=== PATIENT | male | born 1990 | race African-American/Black ===

== ENCOUNTER 2017-01-04 15:01 | Emergency (ER) | payer OTHER ==
[~2017-01-04] VITALS: Ht 175.3 cm; Wt 72.6 kg
[2017-01-04] MEDS ORDERED: HYDR-971 PO (16:29)
[2017-01-04] MEDS ORDERED: AMOX1TAB61 PO (16:29)
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
[2017-01-04] MEDS ORDERED: IBUPROFEN 800 MG TABLET. PO ONE (16:30)
[2017-01-04 16:44] VITALS: BP 136/77
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
== END 2017-01-04 16:45 | disposition home or self-care (01) ==
LOC: ER 15:01
DX: S02.2XXA Fracture of nasal bones, initial encounter for closed fracture (principal); J45.909 Unspecified asthma, uncomplicated; F17.200 Nicotine dependence, unspecified, uncomplicated; Y04.0XXA Assault by unarmed brawl or fight, initial encounter; Y93.89 Activity, other specified; Y92.89 Other specified places as the place of occurrence of the external cause; Y99.8 Other external cause status
CPT/HCPCS: 70150; 99284

== ENCOUNTER 2020-08-14 13:01 | Emergency (ER) | payer OTHER ==
[~2020-08-14] VITALS: Ht 175.3 cm; Wt 84.0 kg
[~2020-08-14 13:01] MED LIST: AMOX1TAB61 PO; HYDR-3164 PO
[2020-08-14 13:24] VITALS: BP 131/89
--- NOTE | 2020-08-14 14:00 | RAD ---
FINGER(S) LEFT DATE: 08/14/2020 1:34 PM INDICATION: Reason: Left hand index finger pain at MCP / Spl. Instructions: / History: COMPARISON: None. FINDINGS: Bones: There is no evidence of acute fracture or dislocation. Joints: The joint spaces are normal. Miscellaneous: None. IMPRESSION: No evidence of acute fracture. Electronically signed by: Roman Chavarria MD (08/14/2020 1:57 PM) [id number]
--- NOTE | 2020-08-14 14:23 | PHYS DOC ---
Past Medical History Past Medical History: Asthma Past Surgical History: No Surgical History Smoking Status: Current Every Day Smoker Alcohol Use: None Drug Use: None General Adult EDM: Chief Complaint: FINGER INJURY HPI: HPI: Patient is a 30 year old male who presents to the ED today complaining of his left index finger getting out of place for the last 1 week. Patient denies any injury. Patient is laughing and covering along during this conversation. Review of Systems: Review of Systems: Constitutional: Denies fever or chills. [] Musculoskeletal: Reports left index finger dislocations Integument: Denies rash. [] Neurologic: Denies headache, focal weakness or sensory changes. [] Psychiatric: Denies depression or anxiety. [] Heart Score: Risk Factors: Risk Factors: DM, Current or recent (<one month) smoker, HTN, HLP, family history of CAD, obesity. Risk Scores: Score 0 - 3: 2.5% MACE over next 6 weeks - Discharge Home Score 4 - 6: 20.3% MACE over next 6 weeks - Admit for Clinical Observation Score 7 - 10: 72.7% MACE over next 6 weeks - Early Invasive Strategies Allergies: Allergies: Allergies Coded Allergies Type Severity Reaction Last Updated Verified No Known Drug Allergies 01/04/17 No Physical Exam: PE: Constitutional: Well developed, well nourished, no acute distress, non-toxic appearance. [] Skin: Warm, dry, no erythema, no rash. [] Back: No tenderness, no CVA tenderness. [] Extremities: Left hand and fingers with no obvious deformity. No pain or tenderness noted. Trigger finger noted while patient was demonstrating he is dislocation and relocation of the finger. Adequate radial sensation to the left index finger. +2 left radial pulse. Cap refill less than 2 seconds to left index finger. Neurologic: Alert and oriented X 3, normal motor function, normal sensory function, no focal deficits noted. [] Psychologic: Affect normal, judgement normal, mood normal. [] Current Patient Data: Vital Signs: Vital Signs Date Time Temp Pulse Resp B/P (MAP) Pulse Ox O2 Delivery O2 Flow Rate FiO2 08/14/20 13:24 97.2 81 16 131/89 (103) 99 Room Air 97.2 EKG: EKG: [] Radiology/Procedures: Radiology/Procedures: []PROCEDURE: FINGER(S) LEFT FINGER(S) LEFT DATE: 08/14/2020 1:34 PM INDICATION: Reason: Left hand index finger pain at MCP / Spl. Instructions: / History: COMPARISON: None. FINDINGS: Bones: There is no evidence of acute fracture or dislocation. Joints: The joint spaces are normal. Miscellaneous: None. IMPRESSION: No evidence of acute fracture. Electronically signed by: Lucas Bhagat MD (08/14/2020 1:57 PM) [id number] DICTATED and SIGNED BY: LUCAS BHAGAT MD DATE: 08/14/20 [id number] 0 Course & Med Decision Making: Course & Med Decision Making Pertinent Labs and Imaging studies reviewed. (See chart for details) This is a 24-year-old male patient presenting to the ED today stating he has had multiple dislocation and relocation of the left index finger for the last 1 week. Finger was examined, there is no deformity noted. This appears to be a trigger finger. Left index finger x-rays were obtained which were negative for any acute findings. Patient was discharged to home. Provided orthopedic doctor for follow-up. Dragon Disclaimer: Dragon Disclaimer: This electronic medical record was generated, in whole or in part, using a voice recognition dictation system. Departure Departure Impression: Primary Impression: Trigger index finger of left hand Disposition: 01 DC HOME SELF CARE/HOMELESS Condition: STABLE Referrals: NO PCP (PCP) SUHAIL LEE MD follow up with the orthopedic doctor provided in 1 week as needed Patient Instructions: Trigger Finger Additional Instructions: You were evaluated in the emergency room, your left index finger x-rays were negative for acute findings. This appears to be a trigger finger. You can follow-up with orthopedic doctor provided. Come back to the ED at any point symptoms worsen ROXY HATCH [employer] Aug 14, 2020 14:23
== END 2020-08-14 14:44 | disposition home or self-care (01) ==
LOC: ER 13:01
DX: M65.322 Trigger finger, left index finger (principal); R20.2 Paresthesia of skin; M79.645 Pain in left finger(s); J45.909 Unspecified asthma, uncomplicated; F17.200 Nicotine dependence, unspecified, uncomplicated
CPT/HCPCS: 73140; 99283